=== PATIENT | male | born 1995 | race Caucasian/White ===

== ENCOUNTER 2017-10-16 18:52 | Emergency (ER) | payer OTHER ==
[~2017-10-16] VITALS: Wt 145.1 kg
[~2017-10-16 18:52] MED LIST: AUGMENTIN 875 M1 TAB PO; CLARITIN10 MG PO; LOTRIMIN1% TP; MOTRIN800 MG PO; NKHM
[2017-10-16 20:38] LABS: BILIRUBIN NEGATIVE (NEGATIVE); BLOOD NEGATIVE (NEGATIVE); CLARITY CLEAR (CLEAR); COLOR YELLOW (YELLOW); GLUCOSE NEGATIVE (NEGATIVE); KETONE NEGATIVE (NEGATIVE); LEUKO ESTERASE NEGATIVE (NEGATIVE); NITRITE NEGATIVE (NEGATIVE)
[2017-10-16] MEDS ORDERED: IBU800 MG PO (20:43)
[2017-10-16] MEDS ORDERED: CYCLOBENZAPRINE5 M3 PO (20:43)
[2017-10-16] MEDS ORDERED: PREDNISONE10 MG PO (20:43)
[2017-10-16 20:48] LABS: WBC 0-2 wbc/hpf (0-5)
[2017-10-16 20:59] VITALS: BP 135/86
== END 2017-10-16 20:48 | disposition home or self-care (01) ==
LOC: ED 18:52
PROVIDERS: Nurse Practitioner
DX: M54.41 Lumbago with sciatica, right side (principal); M79.604 Pain in right leg

== ENCOUNTER 2020-10-06 13:37 | Emergency (ER) | payer OTHER ==
[~2020-10-06] VITALS: Wt 124.7 kg
[~2020-10-06 13:37] MED LIST changes: +CYCLOBENZAPRINE5 M3 PO; +IBU800 MG PO; +PREDNISONE10 MG PO
[2020-10-06 13:44] VITALS: BP 142/87
[2020-10-06] MEDS ORDERED: Motrin,Rufen800 MG PO (17:19)
== END 2020-10-06 17:46 | disposition home or self-care (01) ==
LOC: ED 13:37
DX: S92.251A Displaced fracture of navicular [scaphoid] of right foot, initial encounter for closed fracture (principal); Z79.899 Other long term (current) drug therapy; X58.XXXA Exposure to other specified factors, initial encounter; Y93.89 Activity, other specified; Y92.89 Other specified places as the place of occurrence of the external cause; Y99.8 Other external cause status

== ENCOUNTER → 2022-05-31 | Outpatient (CLI) | payer BC ==
[~2022-05-31] MED LIST changes: +Motrin,Rufen800 MG PO
[2022-05-31 16:55] LABS: BASO % 0.5 % (0.0-1.0); EOS # 0.1 10*3/uL (0.0-0.4); EOS % 1.2 % (1.0-4.0); LYMPH # 1.9 10*3/uL (1.3-4.4); LYMPH % 32.8 % (27.0-41.0); MEAN CELL VOLUME 85.8 fl (80.0-94.0); MEAN CORPUSCULAR HGB 31.3 pg (27.0-31.0); MEAN CORPUSCULAR HGB CONC 36.5 g/dl (33.0-37.0); MEAN PLATELET VOLUME 9.8 fl (9.6-12.3); MONO # 0.3 10*3/uL (0.1-1.0); MONO % 5.8 % (3.0-9.0); NEUT # 3.5 10*3/uL (2.3-7.9); NEUT % 59.4 % (47.0-73.0); PLATELET COUNT AUTOMATED 293 10*3/uL (130-400); RED BLOOD COUNT 5.36 10*6/uL (4.50-5.90); RED CELL DISTRI WIDTH 11.1 % (0-14.5); WHITE BLOOD COUNT 5.8 10*3/uL (4.8-10.8)
[2022-05-31 17:12] LABS: ALKALINE PHOSPHATASE 61 U/L (46-116); BUN 13 mg/dl (9-23); CHLORIDE 102 mmol/L (98-107); CREATININE 1.04 mg/dL (0.70-1.30); POTASSIUM 4.2 mmol/L (3.4-5.1); SGPT/ALT 83 U/L (10-49); SODIUM 136 mmol/L (136-145); TOTAL PROTEIN 7.3 gm/dL (6.0-8.0)
[2022-05-31 17:13] LABS: ACT PARTIAL THROMBO TIME 27.3 SECONDS (20.0-32.1)
[2022-05-31 19:22] LABS: BILIRUBIN Negative (Negative); BLOOD Negative (Negative); CLARITY Clear (Clear); COLOR Yellow (Yellow); GLUCOSE Negative (Negative); KETONE Negative (Negative); LEUKO ESTERASE Negative (Negative); NITRITE Negative (Negative)
[2022-05-31 19:59] LABS: BACTERIA 1+; EPITHELIAL CELLS 0-2; HYALINE CAST 0-2; WBC 0-2 wbc/hpf (0-5)
== END | disposition home or self-care (01) ==
LOC: LAB 15:52
PROVIDERS: ATTEND Neurological Surgery
DX: Z01.818 Encounter for other preprocedural examination (principal)

== ENCOUNTER → 2022-07-08 | Outpatient (CLI) | payer BC | END | disposition home or self-care (01) | LOC: US 08:14 | PROVIDERS: ATTEND Student in an Organized Health Care Education/Training Program | DX: K76.0 Fatty (change of) liver, not elsewhere classified (principal); R16.1 Splenomegaly, not elsewhere classified ==